=== PATIENT | female | born 1950 | race Caucasian/White ===

== ENCOUNTER → 2020-02-10 | Outpatient (CLI) | payer OTHER ==
[~2020-02-10] MED LIST: BENADRYL25 MG PO; CYCL10; HYDACE5; HYDACE5 PO; META800 PO; METPRE4DP PO; MULTIPLE VITAM1 EACH PO; NAPR500 PO; OMEP20ER PO; Prinivil10 MG PO; TRAZ50 PO
== END | disposition home or self-care (01) ==
LOC: LAB EV 13:50 → LAB SHORT 13:50
DX: R10.9 Unspecified abdominal pain (principal)
CPT/HCPCS: 87086

== ENCOUNTER 2020-05-17 17:14 | Inpatient (IN) | payer OTHER, MEDICARE ==
[~2020-05-17] VITALS: Ht 162.6 cm; Wt 111.0 kg
[2020-05-17 17:45] LABS: BASOPHILS ABSOLUTE AUTO 0.03 K/mm3 (0.00-0.23); BASOPHILS PERCENT AUTO 0 % (0-2); EOSINOPHILS PERCENT AUTO 0 % (0-6); Hematocrit 44.8 % (33.0-51.0); Hemoglobin 14.9 g/dL (11.5-16.0); IMMATURE GRAN PERCENT AUTO 1 % (0-1); LYMPHOCYTES ABSOLUTE AUTO 1.51 K/mm3 (0.84-5.20); LYMPHOCYTES PERCENT AUTO 17 % (21-46); MONOCYTES ABSOLUTE AUTO 0.74 K/mm3 (0.16-1.47); MONOCYTES PERCENT AUTO 8 % (4-13); Mean Corpuscular HGB 31.2 pg (26.0-34.0); Mean Corpuscular HGB Conc 33.3 g/dL (31.5-36.5); Mean Corpuscular Volume 94 fL (80-100); NEUTROPHILS ABSOLUTE AUTO 6.42 K/mm3 (1.96-9.15); NEUTROPHILS PERCENT AUTO 73 % (41-73); Platelet Count 265 K/mm3 (150-400); RDW Coefficient Variation 14.3 % (11.7-14.2); RDW Standard Deviation 49.7 fL (35.1-46.3); Red Blood Cell Count 4.77 M/mm3 (3.80-5.20)
[2020-05-17 18:06] LABS: Alanine Aminotransfer (ALT/SGP 44 U/L (12-78); Albumin, Blood 3.2 g/dL (3.4-5.0); Albumin/Globulin Ratio 0.7 (0.8-1.8); Alk Phos 88 U/L (50-136); Anion Gap 8 mmol/L (6-16); Aspartate Aminotrans (AST/SGOT 60 U/L (12-37); Bilirubin, Total 0.3 mg/dL (0.1-1.0); Blood Urea Nitrogen 47 mg/dL (8-24); Bun/Creatinine Ratio 35.1 (12.0-20.0); CO2, Blood 21 mmol/L (21-32); Calcium, Blood 9.3 mg/dL (8.5-10.1); Chloride, Blood 112 mmol/L (98-108); Creatinine, Blood 1.34 mg/dL (0.40-1.00); Globulin, Blood 4.8 g/dL (2.2-4.0); Glomerular Filtration Rate 42 (60-); Glucose, Blood 148 mg/dL (70-99); Sodium, Blood 141 mmol/L (136-145); Troponin I <0.015 ng/mL (0.000-0.040)
[2020-05-17 19:30] LABS: International Normalized Ratio 1.02; Prothrombin Time Results 10.9 Sec (9.7-11.5)
--- NOTE | 2020-05-18 | NUR ---
ASSUMED CARE PT ARRIVED FROM ER VIA STRETCHER, STOOD AND SELF TRANSFERED TO BED; A&O X4 ; VSS; DENIES CHEST PAIN; NSR NOTED ON TELE; O2 SATS >90 ON 15L NRB; INDEPENDENT TO BSC; ORIENTED TO UNIT SAFETY PROTOCOL AND CALL LIGHT; CALL LIGHT IN REACH; BED IN LOWEST POSITION.
[2020-05-18 04:12] LABS: BASOPHILS ABSOLUTE AUTO 0.01 K/mm3 (0.00-0.23); BASOPHILS PERCENT AUTO 0 % (0-2); EOSINOPHILS PERCENT AUTO 0 % (0-6); Hematocrit 40.1 % (33.0-51.0); Hemoglobin 13.5 g/dL (11.5-16.0); Mean Corpuscular HGB 31.2 pg (26.0-34.0); Mean Corpuscular HGB Conc 33.7 g/dL (31.5-36.5); Mean Corpuscular Volume 93 fL (80-100); Mean Platelet Volume 9.2 fL (9.1-12.4); Platelet Count 262 K/mm3 (150-400); RDW Coefficient Variation 14.1 % (11.7-14.2); RDW Standard Deviation 48.1 fL (35.1-46.3); Red Blood Cell Count 4.33 M/mm3 (3.80-5.20); White Blood Cell Count 4.69 K/mm3 (4.00-11.30)
[2020-05-18 04:28] LABS: IMMATURE GRAN ABSOLUTE AUTO 0.15 K/mm3 (0.00-0.10); IMMATURE GRAN PERCENT AUTO 3 % (0-1); LYMPHOCYTES ABSOLUTE AUTO 0.46 K/mm3 (0.84-5.20); LYMPHOCYTES PERCENT AUTO 10 % (21-46); MONOCYTES ABSOLUTE AUTO 0.17 K/mm3 (0.16-1.47); MONOCYTES PERCENT AUTO 4 % (4-13); NEUTROPHILS PERCENT AUTO 83 % (41-73)
[2020-05-18 04:37] LABS: Anion Gap 8 mmol/L (6-16); Blood Urea Nitrogen 38 mg/dL (8-24); Bun/Creatinine Ratio 42.5 (12.0-20.0); CO2, Blood 21 mmol/L (21-32); Calcium, Blood 8.6 mg/dL (8.5-10.1); Chloride, Blood 111 mmol/L (98-108); Creatinine, Blood 0.89 mg/dL (0.40-1.00); Glomerular Filtration Rate >60 (60-); Glucose, Blood 209 mg/dL (70-99); Potassium, Blood 4.7 mmol/L (3.5-5.5); Sodium, Blood 140 mmol/L (136-145)
--- NOTE | 2020-05-18 05:31 | NUR ---
SHIFT SUMMARY PT A&O X 4; PLEASANT & COMPLIANT W/ CARE; DENIES CHEST PAIN; VSS; O2 SATS >93 ON AIRVO, 40L 92%; DESATS QUICKLY W/ ACTIVITY; BSC PLACED DIRECTLY NEXT TO BED; PT INDEPENDENT; AT TIMES FOUND DANGLING AT BEDSIDE W/ O2 OFF 70%, PT SEEMED UNAWARE OF IMPORTANCE OF LEAVING IN PLACE; EDUCATION PROVIDED; PT TALKATIVE AND ABLE TO TALK IN COMPLETE SENTENCES; LR GTT @ 125 ML/HR; PO SNACKS BROUGHT TO PT PRN; CALL LIGHT IN REACH; BED IN LOWEST POSITION; WILL MONITOR CLOSELY UNTIL HAND OFF TO DAY SHIFT RN.
--- NOTE | 2020-05-18 18:15 | NUR ---
SHIFT SUMMARY: NO ACUTE CHANGES T/OUT SHIFT. PT CONTINUES A&O, MAINTAINING O2 SATS >92% ON AIRVO AT 40 L/MIN AND 92% FIO2, SINUS RHTYHM ON MONITOR. PT ABLE TO TRANSFER SELF TO AND FROM BSC/CHAIR WITH MINIMAL DESATURATION. PT REPORTS IMPROVED APPETITE TODAY, USING CALL LIGHT APPROPRIATELY. WILL CONTINUE TO MONITOR AND TREAT ACCORDINGLY UNTIL CHANGE OF SHIFT.
--- NOTE | 2020-05-18 21:40 | NUR ---
ELEVATED BP / CALL TO EGG GRADER PT BP ELEVATED W/ PT REPORT OF "I HAVEN'T TAKEN MY BLOOD PRESSURE MEDICATION IN 3 DAYS." CALL TO EGG GRADER DAVID W/ ONE TIME ORDER FOR PT HOME DOSE OF LISINOPRIL, SEE ORDER. EGG GRADER W/ INSTRUCTION FOR DAY SHIFT HOSPITALIST TO FOLLOW UP ON FURTHER TREATMENT.
--- NOTE | 2020-05-19 05:43 | NUR ---
SHIFT SUMMARY PT A&O X4. VSS. BP IMPROVED AFTER 1X ORDER OF PT's HOME MEDICATION LISINOPRIL. MONITOR SHOWS SR, HR 60's-70's. SPO2 > 92% ON AIRVO @ 40L, FIO2 92%, TITRATED TO 30L, FIO2 65% THIS SHIFT W/ PT TOLERATING WELL. PT INDEPENDENT TO BSC. NO EVENTS OVER NIGHT.
--- NOTE | 2020-05-19 11:19 | NUR ---
Pt was sitting up in chair at the time of morning medication administration. She had just finished brushing her teeth. She was talking in complete sentences, and very talkative, without noted dyspnea at rest while sitting. Took oral medications without any noted difficulty. Wearing hi gaye nasal cannula with O2 delivery at 10 l/min at the time. She asked to get back into bed, which she did with very minimal assistance. Spo2 dropped to 85-86% during the activity, but improved to 90% within just a couple of minutes. Presently she is still wearing the O2 delivery at 10 l/min, resting while apparently sleeping on her left side, and spo2 is 93-94%.
--- NOTE | 2020-05-19 11:49 | NUR ---
Wearing oxygen at 8 l/min hi flow nasal cannula. Self transfer to bedside commode. Now sitting on side of bed, resting chin on her fist on bedside table, looking out window in door and smiling, giving me the thumbs up. spo2 is improving from briefly being at 79%, not 87% following the activity.
--- NOTE | 2020-05-19 17:45 | NUR ---
Pt has been OOB to BSC very frequently today, spo2 dropping down to as low as 75% during the activity, sometimes only as low as 85% during such activity. Also has spo2 85-88% while sitting up eating dinner. Encouraged use of incentive spirometer, which she has been doing. Supplemental oxygen was weaned down from AirVo to hi gaye nasal cannula, now at 8 l/min. Also encouraged OOB to recliner for meals but she said that it hurts her back. She instead opted to sit up and sit on the side of the bed for dinner. States she doesn't feel short of breath, has not had pain, and hasn't had loss of taste/smell. States she does not have fatigue, but is "naturally lazy".
--- NOTE | 2020-05-19 21:12 | NUR ---
CARE ASSUMPTION PT A&O X4. VSS. MONITOR SHOWS NSR, HR 70's. SPO2 87-90% ON 8L HI-HANS NC AT REST, TITRATED TO 10L HI-HANS FOR SPO2 > 92%. PT ENCOURAGED TO PRONE, BUT PT REPORTS INABILITY D/T "BOOBS IN THE WAY." PT REPORTS SHE WILL ROTATE FROM SIDE TO SIDE & SIT UP FREQUENTLY ABLE.
--- NOTE | 2020-05-20 05:47 | NUR ---
SHIFT SUMMARY PT CONTINUES TO BE A&O X4. VSS. SPO2 > 92% ON 10L HI-HANS NC. NO EVENTS OVER NIGHT.
[2020-05-20 06:13] LABS: Hematocrit 43.3 % (33.0-51.0); Hemoglobin 14.1 g/dL (11.5-16.0); Mean Corpuscular HGB 31.4 pg (26.0-34.0); Mean Corpuscular HGB Conc 32.6 g/dL (31.5-36.5); Mean Corpuscular Volume 96 fL (80-100); Mean Platelet Volume 9.5 fL (9.1-12.4); Platelet Count 341 K/mm3 (150-400); RDW Coefficient Variation 13.9 % (11.7-14.2); RDW Standard Deviation 49.3 fL (35.1-46.3); Red Blood Cell Count 4.49 M/mm3 (3.80-5.20); White Blood Cell Count 6.87 K/mm3 (4.00-11.30)
[2020-05-20 06:29] LABS: Anion Gap 8 mmol/L (6-16); Blood Urea Nitrogen 32 mg/dL (8-24); Bun/Creatinine Ratio 37.4 (12.0-20.0); CO2, Blood 24 mmol/L (21-32); Calcium, Blood 9.2 mg/dL (8.5-10.1); Chloride, Blood 112 mmol/L (98-108); Creatinine, Blood 0.86 mg/dL (0.40-1.00); Glomerular Filtration Rate >60 (60-); Glucose, Blood 137 mg/dL (70-99); Potassium, Blood 4.7 mmol/L (3.5-5.5); Sodium, Blood 144 mmol/L (136-145)
--- NOTE | 2020-05-20 08:51 | NUR ---
Sat up on side of bed this morning after vital signs taken. Lung sounds ausculated, noted coarse crackles only in upper lobes. Pt states small amounts of clear sputum is being coughed up, occasionally. spo2 88-89 while sitting on side of bed, eating breakfast on 10 l/min O2 by nasal cannula. Denies pain, denies dyspnea while at rest. States she does feel a little short of breath while up to [facility] [place], which she is doing independently. She is able to carry on normal conversation and complete long sentences without difficulty while at rest. States not much of an appetite. Encouraged use of incentive spirometer and activity such as OOB to chair for meals. She would like to get up and get into the shower today.
--- NOTE | 2020-05-20 09:58 | NUR ---
ASSISTED up to shower, spo2 maintained 90% during walk to and sitting on commode. Carrying on conversation cheerfully while sitting in shower chair, bathing with LAUNDRY ASSISTANT assistance.
--- NOTE | 2020-05-20 10:50 | NUR ---
Assisted up for shower, and she tolerated it quite well; O2 was increased to 12 l/min during the shower. Denied difficulty breathing while in shower. Afterwards, she ambulated to the bed and was 88% spo2 still on the 12 l/min. She felt tired she said, and had mild shortness of breath. Recovered to 90-91% spo2 after 2-5 minutes of sitting on side of bed. O2 decreased to 10 l/min. At this time, she is 95% spo2 at rest, sitting up in bed.
--- NOTE | 2020-05-20 12:10 | NUR ---
Tolerating toileting independently at BSC on 8 l/min O2 delivery; spo2 maintaiing 88-90%. HR 89 bpm.
--- NOTE | 2020-05-20 16:16 | NUR ---
Notified Dr. March of black stool, which the patient stated that she started to have a week ago. States that she was taking aspirin at home, and here in the hospital she has been taking xarelto. She has been having frequent small formed soft stools, states black in color. New orders received and stool sample sent for guaiac to lab. Xarelto dc'd, omeprazole dosing adjusted and SCDs additional lab work also ordered at this time.
[2020-05-20 16:57] LABS: Hematocrit 40.8 % (33.0-51.0); Hemoglobin 13.8 g/dL (11.5-16.0)
[2020-05-21 05:05] LABS: Hematocrit 37.8 % (33.0-51.0); Hemoglobin 12.5 g/dL (11.5-16.0); Mean Corpuscular HGB 30.9 pg (26.0-34.0); Mean Corpuscular HGB Conc 33.1 g/dL (31.5-36.5); Mean Corpuscular Volume 93 fL (80-100); Mean Platelet Volume 9.5 fL (9.1-12.4); Platelet Count 317 K/mm3 (150-400); RDW Coefficient Variation 13.6 % (11.7-14.2); RDW Standard Deviation 46.2 fL (35.1-46.3); Red Blood Cell Count 4.05 M/mm3 (3.80-5.20); White Blood Cell Count 6.41 K/mm3 (4.00-11.30)
[2020-05-21 05:35] LABS: Anion Gap 6 mmol/L (6-16); Blood Urea Nitrogen 23 mg/dL (8-24); Bun/Creatinine Ratio 30.3 (12.0-20.0); CO2, Blood 27 mmol/L (21-32); Calcium, Blood 8.8 mg/dL (8.5-10.1); Chloride, Blood 110 mmol/L (98-108); Creatinine, Blood 0.76 mg/dL (0.40-1.00); Glomerular Filtration Rate >60 (60-); Glucose, Blood 141 mg/dL (70-99); Potassium, Blood 3.9 mmol/L (3.5-5.5); Sodium, Blood 143 mmol/L (136-145)
--- NOTE | 2020-05-21 07:38 | NUR ---
SHIFT SUMMARY PATIENT PLEASENT AND COOPERATIVE THROUGHOUT THE NIGHT. PATIENT APPEARED TO SLEEP WELL LAST NIGHT WITH NO COMPLAINTS OF PAIN OR DISCOMFORT. VITAL SIGNS CHARTED. PATIENT ON 6L VIA HIGH FLOW NASAL CANNULA. PATIENT CURRENTLY APPEARS TO BE SLEEPING. REPORT GIVEN TO ONCOMING RN.
[2020-05-21 08:40] LABS: Stool Occult Blood Guaiac 1 Pos (Neg)
--- NOTE | 2020-05-21 08:45 | NUR ---
spo2 dropped to 79-80% while pt was sitting on side of bed, eating breakfast while on 6 l/min n.c. delivery She stated that she did not feel any dyspnea or difficulty breathing at that time. Lung sounds clear except for left lower lobe, which has fine inspiratory crackles. Oxygen was increased to 12 l/min for recovery, which improved spo2 to 82-86% finally after several minutes. O2 delivery is now at 10 l/min. She is talking, laughing and states that she feels fine. While talking, spo2 drops to 83%. Encouraged to stop talking and take deep breaths through her nose to increase oxygen that she is getting. spo2 improved to 85%.
--- NOTE | 2020-05-21 11:40 | NUR ---
Strongly recommended pt to continue use of incentive spirometer, changing her positions, getting up and moving around the room, and attempting proning position. She used the incentive spirometer this morning, and [facility] was moved half way between bed and bathroom to encourage her to be more mobile. She is not really attempting to prone, even after my strong recommendation that she do it right now. Pt has been only lying on her left side, and after being instructed to prone at this time, she is only lying again on the left side. I encouraged her this morning to not always lie on the left side, but to vary her positions when in the bed. Spo2 88% on 10 l/min n.c. delivery at this time.
--- NOTE | 2020-05-21 13:24 | NUR ---
After eating lunch, she is lying on her left side, appears to be sleeping. spo2 92% on 10 l/min n.c. hi flow.
--- NOTE | 2020-05-21 16:19 | NUR ---
Assisted OOB to shower; pt required 10 l of O2, but afterwards it was weaned down to 8 l and she maintained the same spo2 of 89-90% on the 8 l.
--- NOTE | 2020-05-22 04:43 | NUR ---
SUMMARY PT HAD NO ACUTE ISSUES NOTED. PT REMAINS ON 8 LPM O2. PT HAS NOT REQUIRED MORE O2. PT DENIES SOB OR CX PAIN. PT HAS RESTED/ SLEPT WELL T/O SHIFT. PT CURRENTLY SLEEPING IN NO DISTRESS. CALL LIGHT IN REACH.
[2020-05-22 05:00] LABS: Hematocrit 39.8 % (33.0-51.0); Hemoglobin 13.5 g/dL (11.5-16.0); Mean Corpuscular HGB 31.7 pg (26.0-34.0); Mean Corpuscular HGB Conc 33.9 g/dL (31.5-36.5); Mean Corpuscular Volume 93 fL (80-100); Mean Platelet Volume 8.9 fL (9.1-12.4); Platelet Count 315 K/mm3 (150-400); RDW Coefficient Variation 13.5 % (11.7-14.2); RDW Standard Deviation 45.7 fL (35.1-46.3); Red Blood Cell Count 4.26 M/mm3 (3.80-5.20); White Blood Cell Count 7.32 K/mm3 (4.00-11.30)
[2020-05-22 05:22] LABS: Anion Gap 5 mmol/L (6-16); Blood Urea Nitrogen 22 mg/dL (8-24); Bun/Creatinine Ratio 26.5 (12.0-20.0); CO2, Blood 27 mmol/L (21-32); Calcium, Blood 8.8 mg/dL (8.5-10.1); Chloride, Blood 109 mmol/L (98-108); Creatinine, Blood 0.83 mg/dL (0.40-1.00); Glomerular Filtration Rate >60 (60-); Glucose, Blood 151 mg/dL (70-99); Potassium, Blood 4.3 mmol/L (3.5-5.5); Sodium, Blood 141 mmol/L (136-145)
--- NOTE | 2020-05-22 18:06 | NUR ---
SHIFT SUMMARY PT A/O X4; PLEASANT AND COOPERATIVE WITH CARE. NO ACUTE CHANGES THIS SHIFT. PT REPORTS "FEELING MUCH BETTER" TODAY. SHE HAS BEEN LESS DYSPNEIC BUT STILL IS HESITANT TO WALK TO THE BATHROOM. CURRENTLY ON 8 LITERS O2 VIA NC AND HAS BEEN SATTING AT AROUND 91% ALL SHIFT. SHE DID HAVE AN INSTANCE OF BRADYCARDIA WHILE SHE WAS SLEEPING WITH A HR OF 48. THE BRADYCARDIA HAS SINCE RESOLVED. WILL POSSIBLY DC HOME TOMORROW. VSS; RESTING COMFORTABLY WITH HER CALL LIGHT IN REACH.
--- NOTE | 2020-05-23 04:13 | NUR ---
SHIFT SUMMARY ASSUMED CARE OF PT AT 1900. PT IS A/OX4. HEART SOUNDS REGULAR, LUNG SOUNDS HAVE CRACKLES IN THE L LUNG BASE, PT EDUCATED ABOUT ROLLING IN BED AND USING THE BATHROOM INSTEAD OF COMMODE TO PROMOTE MOVEMENT OF THE FLUIDS. PT UNDERSTOOD WITH VERBAL CONFIRMATION BUT CONTINUED TO USE THE COMMODE. PT IS INDEPENDENT IN ROOM. PT WAS ON 8L NC BUT IS NOT ON 6L. PT SATURATIONS ARE 90-94% AND WILL DESATURATE WTIH ACTIVITY, PT REPORTS HAVING NO SOB AND FEELING MUCH BETTER TONIGHT. PT HEART RATE WOULD DIP DOWN TO 49 BPM DURING DEEP SLEEP. CALL LIGHT IN REACH, BED IN LOWEST POSTION.
--- NOTE | 2020-05-23 08:00 | NUR ---
pt laying in bed awake a/ox3, pleasant and cooperative with care, follows commands well, denies complaints, states she feels good, and is interested in going home today, sats were in the 80's, was on 5 liters, turned her up to 8 liters to get sats up, denies feeling sob, she really drops with activity, lungs are clear in upper finley, dim in bases, crackles in the right base, reports an occ productive cough of clear sputum, hrr, tele in place running sr in the 70's, no edema noted, ppp+2, cap refill< 3 sec, vs stable, afebrile, iv site is clear and patent, btx4, abd flat soft nontender, voids without diff, skin c/w/d, joana rhoades, call light in reach.
[2020-05-23] MEDS ORDERED: DECADRON6 M1 PO (13:26)
[2020-05-23] MEDS ORDERED: VITAMIN D5000 UNIT PO (13:31)
[2020-05-23] MEDS ORDERED: OMEP20ER PO (13:33)
--- NOTE | 2020-05-23 14:52 | NUR ---
pt was interested in going home today, Dr. March was agreeable after a home o2 eval, after speaking with her she decided to stay one more day. notified. her status was changed to medical. call light in reach.
--- NOTE | 2020-05-23 18:25 | NUR ---
ENCOURAGED PT TO AMBULATE INTO THE BATHROOM TO VOID, SHE IS ABLE TO AMBULATE INDEP. STATES SHE'S LAZY. NO ACUTE CHANGES OR NEEDS. CALL LIGHT IN REACH.
[2020-05-24 05:16] LABS: Hematocrit 42.1 % (33.0-51.0); Hemoglobin 13.8 g/dL (11.5-16.0); Mean Corpuscular HGB 30.8 pg (26.0-34.0); Mean Corpuscular HGB Conc 32.8 g/dL (31.5-36.5); Mean Corpuscular Volume 94 fL (80-100); Mean Platelet Volume 9.3 fL (9.1-12.4); Platelet Count 391 K/mm3 (150-400); RDW Coefficient Variation 13.4 % (11.7-14.2); RDW Standard Deviation 45.5 fL (35.1-46.3); Red Blood Cell Count 4.48 M/mm3 (3.80-5.20); White Blood Cell Count 9.19 K/mm3 (4.00-11.30)
--- NOTE | 2020-05-24 05:20 | NUR ---
SHIFT SUMMARY ASSUMED CARE OF PT AT 1900. PT IS A/OX4. HEART SOUNDS REGULAR, LUNG SOUNDS ARE DIMINISHED WITH CRACKLES AT THE BASES. PT WAS ON 6L NC T/O THE NIGHT AND WAS TITRATED DOWN TO 5 THIS AM. PT IS TOLERATING WELL, DENIES SOB. PT WILL DIP INTO 89 WITH ACTIVITY BUT WILL BOUNCE BACK UP QUICKLY. PT IS INDEPENDENT IN ROOM. CALL LIGHT IN REACH, BED IN LOWEST POSITON.
[2020-05-24 05:40] LABS: Anion Gap 5 mmol/L (6-16); Blood Urea Nitrogen 24 mg/dL (8-24); Bun/Creatinine Ratio 26.9 (12.0-20.0); CO2, Blood 28 mmol/L (21-32); Calcium, Blood 9.1 mg/dL (8.5-10.1); Chloride, Blood 107 mmol/L (98-108); Creatinine, Blood 0.89 mg/dL (0.40-1.00); Glomerular Filtration Rate >60 (60-); Glucose, Blood 177 mg/dL (70-99); Potassium, Blood 4.3 mmol/L (3.5-5.5); Sodium, Blood 140 mmol/L (136-145)
--- NOTE | 2020-05-24 11:31 | NUR ---
DISCHARGE NOTE PATIENT DISCHARGED TO HOME. PATIENT ALERT, ORIENTED, AND INDEPENDENT IN THE ROOM THIS SHIFT. PATIENT DENIES PAIN THIS SHIFT. PATIENT REMAINS ON 5-6L O2, WILL CONTINUE O2 AT HOME. PATIENT STATES SHE IS FEELING PRETTY WELL TODAY. PATIENT DENIES DIFFICULTY BREATHING. PATIENT PROVIDED WITH DISCHARGE AND MEDICATION EDUCATION. PATIENT STATES NO QUESTIONS AT THIS TIME. IV REMOVED PRIOR TO DISCHARGE. PATIENT DRESSED INDEPENDENTLY. PATIENT TO VEHICLE IN WHEELCHAIR BY FOOD STAND MANAGER.
== END 2020-05-24 11:09 | disposition home or self-care (01) | DRG 871 ==
LOC: ER 17:14 → ERHOLD 19:00 → PCU 23:39
PROVIDERS: Emergency Medicine; ADMIT Internal Medicine
PROC: XW033E5 Introduction of Remdesivir Anti-infective into Peripheral Vein, Percutaneous Approach, New Technology Group 5 (ICD-10-PCS; principal; 2020-05-17)
PROC: 3E0333Z Introduction of Anti-inflammatory into Peripheral Vein, Percutaneous Approach (ICD-10-PCS; 2020-05-17)
PROC: 8E0ZXY6 Isolation (ICD-10-PCS; 2020-05-17)
DX: A41.89 Other specified sepsis (principal); U07.1 COVID-19; J12.82 Pneumonia due to coronavirus disease 2019; J96.01 Acute respiratory failure with hypoxia; Z68.41 Body mass index [BMI] 40.0-44.9, adult; K92.1 Melena; I10 Essential (primary) hypertension; E88.81 Metabolic syndrome and other insulin resistance; E66.9 Obesity, unspecified; E11.65 Type 2 diabetes mellitus with hyperglycemia; T38.0X5A Adverse effect of glucocorticoids and synthetic analogues, initial encounter; Z91.018 Allergy to other foods; Z90.710 Acquired absence of both cervix and uterus; Z79.899 Other long term (current) drug therapy
CPT/HCPCS: 36415; 36416; 71045; 71260; 80048; 80053; 82272; 83036; 83605; 83880; 84484; 85014; 85018; 85025; 85027; 85610; 85730; 87040; 93005; 93010; 94761; 94762; 96365-59; 96366; 96375-59; 99285-25; A9270; J1100; J7050; J7120; Q9967

== ENCOUNTER 2021-06-16 12:42 | Observation (INO) | payer OTHER ==
[~2021-06-16] VITALS: Ht 162.6 cm; Wt 108.5 kg
[~2021-06-16 12:42] MED LIST changes: +DECADRON6 M1 PO; +VITAMIN D5000 UNIT PO
[2021-06-16 13:52] LABS: BASOPHILS ABSOLUTE AUTO 0.07 K/mm3 (0.00-0.23); BASOPHILS PERCENT AUTO 1 % (0-2); EOSINOPHILS ABSOLUTE AUTO 0.11 K/mm3 (0.00-0.68); EOSINOPHILS PERCENT AUTO 1 % (0-6); Hematocrit 43.6 % (33.0-51.0); Hemoglobin 13.8 g/dL (11.5-16.0); IMMATURE GRAN ABSOLUTE AUTO 0.01 K/mm3 (0.00-0.10); IMMATURE GRAN PERCENT AUTO 0 % (0-1); LYMPHOCYTES ABSOLUTE AUTO 1.76 K/mm3 (0.84-5.20); LYMPHOCYTES PERCENT AUTO 23 % (21-46); MONOCYTES ABSOLUTE AUTO 0.66 K/mm3 (0.16-1.47); MONOCYTES PERCENT AUTO 9 % (4-13); Mean Corpuscular HGB 27.5 pg (26.0-34.0); Mean Corpuscular HGB Conc 31.7 g/dL (31.5-36.5); Mean Corpuscular Volume 87 fL (80-100); Mean Platelet Volume 9.4 fL (9.1-12.4); NEUTROPHILS ABSOLUTE AUTO 4.98 K/mm3 (1.96-9.15); NEUTROPHILS PERCENT AUTO 66 % (41-73); Platelet Count 276 K/mm3 (150-400); RDW Coefficient Variation 15.9 % (11.7-14.2); RDW Standard Deviation 49.7 fL (35.1-46.3); Red Blood Cell Count 5.02 M/mm3 (3.80-5.20); White Blood Cell Count 7.59 K/mm3 (4.00-11.30)
[2021-06-16 14:16] LABS: Alanine Aminotransfer (ALT/SGP 36 U/L (12-78); Albumin, Blood 3.9 g/dL (3.4-5.0); Albumin/Globulin Ratio 1.1 (0.8-1.8); Alk Phos 70 U/L (50-136); Anion Gap 6 mmol/L (6-16); Aspartate Aminotrans (AST/SGOT 24 U/L (12-37); Bilirubin, Total 0.6 mg/dL (0.1-1.0); Blood Urea Nitrogen 13 mg/dL (8-24); Bun/Creatinine Ratio 14.9 (12.0-20.0); CO2, Blood 31 mmol/L (21-32); Calcium, Blood 9.4 mg/dL (8.5-10.1); Chloride, Blood 104 mmol/L (98-108); Creatinine, Blood 0.87 mg/dL (0.40-1.00); Globulin, Blood 3.7 g/dL (2.2-4.0); Glomerular Filtration Rate >60 (60-); Glucose, Blood 157 mg/dL (70-99); Potassium, Blood 4.7 mmol/L (3.5-5.5); Sodium, Blood 141 mmol/L (136-145); Total Protein, Blood 7.6 g/dL (6.4-8.2)
[2021-06-16 14:36] LABS: Source, Urine Clean Catch
[2021-06-16 14:42] LABS: Appearance, Urine Hazy (Clear); Bilirubin, Urine Neg (Neg); Blood, Urine Neg (Neg); Color, Urine Yellow (P-Yellow); Glucose Qualitative, Urine Neg (Neg); Ketones, Urine Neg (Neg); Leukocyte Esterase, Urine 1+ (Neg); Nitrite, Urine Neg (Neg); Protein, Urine Neg (Neg); Specific Gravity, Urine 1.015 (1.003-1.022); Urobilinogen, Urine NORM (Normal); pH, Urine 6.5 (5.0-8.0)
[2021-06-16 15:19] LABS: Bacteria Many /hpf; Red Blood Cells, Urine 0-2 /hpf (0-2); Squamous Epithelial Cells Many /hpf (Few)
--- NOTE | 2021-06-16 19:12 | NUR ---
pt received from day surg. report from luc just prior to shift change. she states will ask dr to put in diet and other orders. pt pleasant, vss. h/r reg, no murmer noted. lungs clear upper and mid. light crackles bases. presently on 2l o2. denies pain. a/o x3. talkative. retreived pillow for holding about abd for coughing. abd has binder in place, no blood / drainage noted thru pad. passed report to nyasia quach. melina shift. bed in low position, calllite in reach, calls approp.
--- NOTE | 2021-06-17 04:54 | NUR ---
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 PT HAD ABD HERNIA REPAIR. SURGICAL INCISION TO UPPER ABD C/D/I WITH WOUND GLUE. ABD BINDER IN PLACE. PT HAS TOLERATED CLEAR LIQUID DIET THUS FAR AND HAS AMBULATED AND URINATED MULTIPLE TIMES TONIGHT. MEDICATED WITH NORCO X2 PER EMAR WITH GOOD PAIN RELIEF. VSS, WILL CONTINUE TO MONITOR.
[2021-06-17] MEDS ORDERED: HYDR1TAB94 PO (10:06)
--- NOTE | 2021-06-17 10:20 | NUR ---
Pt. is sitting up in bed and welcomes my visit. Pt. is bouyant with the plan to soon be discharged. Pt. is a little unsettled about further recovery as there are children in the home. Through empathetic listening and pastoral professor of counseling we addressed her lucy and belief. Pt. displayed evidence of reduced stress and engagement. Prayed for pt. Pt. verbalized gratitude for the spiritual are visit.
--- NOTE | 2021-06-17 11:49 | NUR ---
DISCHARGE PT LEFT AT 1130 ALL BELONGINGS WITH PATIENT, MIDLINE INCISION REMAINS CDI. PT PAIN WELL CONTROLLED WITH PO. TOLERATING REGULAR DIET WITH NO NAUSEA OR VOMITING. PT IND IN ROOM, NO WEAKNESS WITH MOVEMENT. ALL INSTRUCTIONS GONE OVER WITH PATIENT, IV REMOVED. NO FURTHER QUESTIONS FROM PATIENT AT THIS TIME./
== END 2021-06-17 11:47 | disposition home or self-care (01) ==
LOC: ER 12:42 → SURS 12:43 → ER 15:13 → SURS 15:13
PROVIDERS: Physician Assistant; ADMIT Surgery
DX: K43.6 Other and unspecified ventral hernia with obstruction, without gangrene (principal); I10 Essential (primary) hypertension; E11.9 Type 2 diabetes mellitus without complications; E66.9 Obesity, unspecified; Z68.38 Body mass index [BMI] 38.0-38.9, adult; Z91.018 Allergy to other foods
CPT/HCPCS: 36415; 80053; 81001; 85025; 99284; A9270; J0690; J1100; J1650; J1885; J2250; J2405; J2704; J3010; J7120

== ENCOUNTER → 2024-01-03 | Outpatient (CLI) | payer OTHER ==
[~2024-01-03] MED LIST changes: +HYDR1TAB94 PO
[2024-01-03 17:26] LABS: BASOPHILS PERCENT AUTO 2 % (0-2); EOSINOPHILS ABSOLUTE AUTO 0.28 K/mm3 (0.00-0.68); EOSINOPHILS PERCENT AUTO 5 % (0-6); Hematocrit 35.5 % (33.0-51.0); Hemoglobin 10.2 g/dL (11.5-16.0); IMMATURE GRAN ABSOLUTE AUTO 0.03 K/mm3 (0.00-0.10); IMMATURE GRAN PERCENT AUTO 1 % (0-1); LYMPHOCYTES ABSOLUTE AUTO 1.17 K/mm3 (0.84-5.20); LYMPHOCYTES PERCENT AUTO 21 % (21-46); MONOCYTES ABSOLUTE AUTO 0.58 K/mm3 (0.16-1.47); MONOCYTES PERCENT AUTO 10 % (4-13); Mean Corpuscular HGB 22.7 pg (26.0-34.0); Mean Corpuscular HGB Conc 28.7 g/dL (31.5-36.5); Mean Corpuscular Volume 79 fL (80-100); Mean Platelet Volume 10.2 fL (9.1-12.4); NEUTROPHILS ABSOLUTE AUTO 3.42 K/mm3 (1.96-9.15); NEUTROPHILS PERCENT AUTO 61 % (41-73); Platelet Count 240 K/mm3 (150-400); RDW Coefficient Variation 19.1 % (11.7-14.2); RDW Standard Deviation 54.4 fL (35.1-46.3); White Blood Cell Count 5.58 K/mm3 (4.00-11.30)
[2024-01-03 17:39] LABS: Percent Saturation 5.7 % (15.0-50.0)
== END | disposition home or self-care (01) ==
LOC: LAB SHORT 16:14 → LAB 16:14
PROVIDERS: Nurse Practitioner Family
DX: D50.9 Iron deficiency anemia, unspecified (principal)
CPT/HCPCS: 82728; 83540; 83550; 85025